=== PATIENT | male | born 1955 | race Caucasian/White ===

== ENCOUNTER 2019-06-06 16:08 | Emergency (ER) | payer MEDICAID, OTHER ==
--- NOTE | 2019-06-06 16:31 | ED Physician Documentation ---
PD HPI TRUNK INJURY - Stated complaint Stated Complaint: GLF - Chief complaint Chief Complaint: Trauma Ch/Bk - History obtained from History obtained from: Patient - History of Present Illness Location: Posterior chest, Right chest, Right abdomen, Mid back Type of injury: Fall (he slipped and fell backward/right, landing on stair edge to the thoracic right back, and has pain in spine/right lateral lower ribs/ chestwall/ right flank/ right upper abd.) Timing - onset: How many hours ago (1), Today Timing - details: Abrupt onset, Still present Quality: Pain Worsened by: Moving, Palpating Associated symtptoms: Discoloration (daughter says the area looked red right off after the fall.). No: Weakness, Numbness, Swelling Contributing factors: No: Anticoagulated Recently seen: Not recently seen Review of Systems Constitutional: reports: Fever. denies: Chills Nose: denies: Rhinorrhea / runny nose, Congestion Throat: denies: Sore throat Cardiac: reports: Chest pain / pressure. denies: Palpitations Respiratory: denies: Dyspnea, Cough GI: reports: Abdominal Pain Skin: denies: Abrasion (s), Laceration (s) Musculoskeletal: reports: Back pain Neurologic: denies: Altered mental status, Headache, Head injury, LOC PD PAST MEDICAL HISTORY - Past Medical History Cardiovascular: Hypertension Respiratory: None Endocrine/Autoimmune: None - Present Medications Home Medications: Ambulatory Orders Medication Instructions Recorded Confirmed Docusate Sodium 100 mg PO DAILY #15 capsule 06/06/19 Ibuprofen [Motrin] 600 mg PO TID PRN #25 tab 06/06/19 Oxycodone HCl/Acetaminophen 1 each PO Q6H PRN #20 tablet 06/06/19 [Percocet 5-325 mg Tablet] Tizanidine HCl 4 mg PO TID PRN #25 capsule 06/06/19 - Allergies Allergies/Adverse Reactions: Allergies Allergy/AdvReac Type Severity Reaction Status Date / Time No Known Drug Allergies Allergy Verified 06/06/19 16:12 - Living Situation Living Situation: reports: With spouse/s.o. Living Arrangement: reports: At home - Social History Does the pt smoke?: No Does the pt drink ETOH?: No Does the pt have substance abuse?: No - Family History Family history: reports: Non contributory PD ED PE NORMAL - Vitals Vital signs reviewed: Yes - General General: Alert and oriented X 3, Well developed/nourished, Other (appears very uncomfortable with pain in injured area. right posterolateral lower ribs, soft tissue and RUQ abd at liver. ) - HEENT HEENT: Atraumatic, Pharynx benign - Neck Neck: Supple, no meningeal sign, No adenopathy - Cardiac Cardiac: RRR, No murmur - Respiratory Respiratory: Clear bilaterally - Abdomen Abdomen: Soft, Non distended, No organomegaly, Other (very tender RUQ without pe rcussion, but does have some rebound. ) - Male Male : Deferred - Rectal Rectal: Deferred - Back Back: No spinal TTP, Other (tender right flank area to perdussion) - Derm Derm: Normal color, Warm and dry Results - Vitals Vitals: Vital Signs - 24 hr 06/06/19 06/06/19 06/06/19 16:12 16:29 18:35 Temperature 37.4 C 37 C Heart Rate 87 84 75 Respiratory 20 14 17 Rate Blood Pressure 242/95 H 199/93 H 179/92 H O2 Saturation 98 97 94 Oxygen O2 Source Room air - Labs Labs: Laboratory Tests 06/06/19 06/06/19 17:00 17:00 WBC 5.4 RBC 4.74 Hgb 14.5 Hct 41.7 L MCV 88.0 MCH 30.6 MCHC 34.8 RDW 14.0 Plt Count 157 MPV 10.7 Neut # (Auto) 3.7 Lymph # (Auto) 1.0 L [place] # (Auto) 0.5 Eos # (Auto) 0.2 Baso # (Auto) 0.0 Absolute Nucleated RBC 0.00 Nucleated RBC % 0.0 Sodium 138 Potassium 4.0 Chloride 99 L Carbon Dioxide 30 Anion Gap 9.0 BUN 27 H Creatinine 1.0 Estimated GFR (MDRD) 76 L Glucose 289 H Calcium 9.5 Total Bilirubin 0.6 AST 28 ALT 35 Alkaline Phosphatase 83 Total Protein 7.5 Albumin 4.6 Globulin 2.9 Albumin/Globulin Ratio 1.6 Lipase 37 - Rads (name of study) chest/abd/pelvic CT with contrast Radiology: Prelim report reviewed (no acute fractures seen. No organ injury nor internal bleeding. ), See rad report PD MEDICAL DECISION MAKING - ED course Complexity details: reviewed results, re-evaluated patient, considered different ial (to evaluate the lower ribs, and consider spine, kidney and liver injuries. ) Departure - Departure Disposition: 01 Home, Self Care Clinical Impression: Contusion of abdominal wall, initial encounter Contusion of thoracic wall Qualifiers: Encounter type: initial encounter Contusion of thoracic wall detail: back wall of thorax Laterality: right Qualified Code(s): S20.221A - Contusion of right back wall of thorax, initial encounter Condition: Stable Record reviewed to determine appropriate education?: Yes Instructions: ED Contusion Chest Wall Prescriptions: Docusate Sodium 100 mg PO DAILY #15 capsule Ibuprofen [Motrin] 600 mg PO TID PRN #25 tab PRN Reason: Pain Oxycodone HCl/Acetaminophen [Percocet 5-325 mg Tablet] 1 each PO Q6H PRN #20 tablet PRN Reason: pain Tizanidine HCl 4 mg PO TID PRN #25 capsule PRN Reason: Spasms Comments: Ice or cool towels to the sore areas to reduce swelling periodically. Activity as tolerated. Your CT scan did not show any fractures of ribs or spine nor any signs of internal organ injuries nor internal bleeding. He will still be sore in the soft tissues from the bruising and injury and this can take several days to a week or so for improving. Use an anti-inflammatory such as ibuprofen 3 times a day with food. Add tizanidine muscle relaxant for spasms and stiffness. Add Tylenol or Percocet if needed for pains. Use a stool softener daily for the next week or 2 as the medications and the injury sometimes can lead to some constipation. Recheck if not improved well over the next several days to a week. Discharge Date/Time: 06/06/19 19:22
[2019-06-06] MEDS ORDERED: ONDANSETRON 4 MG/2 ML VIAL IVP STA (16:53)
[2019-06-06] MEDS ORDERED: HYDROmorphone 1 MG/ML CARPUJECT IVP STA ×2 (16:53→18:43)
[2019-06-06] MEDS ORDERED: SODIUM CHLORIDE 0.9% 1,000 ML IV ONE (16:54)
[2019-06-06] MEDS ORDERED: ACETAMINOPHEN 1,000 MG/100 ML 100 ML IV STA (16:55)
[2019-06-06 17:06] LABS: BASOPHILS % (AUTO) 0.7 %; EOSINOPHILS # (AUTO) 0.2 10^3/uL (0.0-0.7); EOSINOPHILS % (AUTO) 3.3 %; HGB - HEMOGLOBIN 14.5 g/dL (14.0-18.0); LYMPHOCYTES % (AUTO) 17.5 %; MEAN CORPUSCULAR HEMOGLOBIN 30.6 pg (27.0-31.0); MEAN CORPUSCULAR HGB CONC 34.8 g/dL (32.0-36.0); MEAN PLATELET VOLUME 10.7 fL (7.4-11.4); MONOCYTES # (AUTO) 0.5 10^3/uL (0.0-1.0); NEUTROPHILS # (AUTO) 3.7 10^3/uL (1.5-6.6); NEUTROPHILS % (AUTO) 69.1 %; PLT - PLATELET COUNT 157 10^3/uL (130-450); RED BLOOD COUNT 4.74 10^6/uL (4.70-6.10); WHITE BLOOD COUNT 5.4 x10^3/uL (4.8-10.8)
[2019-06-06] MEDS ORDERED: IOVERSOL 320 100 ML VIAL IVP ONE ×2 (17:11→17:53)
[2019-06-06 17:20] LABS: ALBUMIN 4.6 g/dL (3.2-5.5); ALBUMIN/GLOBULIN RATIO 1.6 (1.0-2.2); BILIRUBIN,TOTAL 0.6 mg/dL (0.2-1.0); CALCIUM 9.5 mg/dL (8.5-10.3); TOTAL PROTEIN 7.5 g/dL (6.7-8.2)
[2019-06-06] MEDS ORDERED: KETOROLAC 30 MG/ML VIAL IVP STA (18:02)
--- NOTE | 2019-06-06 18:26 | CT Report ---
Reason: fall onto steps, right thoracolumbar pain Procedure Date: 06/06/2019 Accession Number: [id number] / [id number] Procedure: CT - CHEST W CPT Code: Final Report FULL RESULT: EXAM: CT CHEST EXAM DATE: 06/06/2019 05:52 PM. CLINICAL HISTORY: Fall onto steps, right thoracolumbar pain. COMPARISONS: None. TECHNIQUE: Routine helical CT imaging was performed through the chest. IV contrast: 90 ML of Optiray 320. Reconstructions: Coronal and sagittal. In accordance with CT protocol optimization, one or more of the following dose reduction techniques were utilized for this exam: automated exposure control, adjustment of mA and/or KV based on patient size, or use of iterative reconstructive technique. FINDINGS: Lungs/Pleura: No nodules, bronchial thickening, consolidation, or edema. Pulmonary vasculature is normal. No pericardial or pleural effusion. No pneumothorax. Mediastinum: Normal. No adenopathy or masses. The heart and great vessels are normal. Bones: Unremarkable. Visualized Abdomen: Unremarkable. Other: None. IMPRESSION: Normal chest CT. RADIA
--- NOTE | 2019-06-06 18:31 | CT Report ---
Reason: fall onto steps, right thoracolumbar pain Procedure Date: 06/06/2019 Accession Number: [id number] / [id number] Procedure: CT - Abdomen/Pelvis W CPT Code: Final Report FULL RESULT: EXAM: CT ABDOMEN AND PELVIS EXAM DATE: 06/06/2019 05:52 PM. CLINICAL HISTORY: Fall onto steps, right thoracolumbar pain. COMPARISONS: None. TECHNIQUE: Routine helical CT imaging was performed through the abdomen and pelvis. IV contrast: Optiray 320 90 mL. Enteric contrast: No. Reconstructions: Coronal and sagittal. In accordance with CT protocol optimization, one or more of the following dose reduction techniques were utilized for this exam: automated exposure control, adjustment of mA and/or KV based on patient size, or use of iterative reconstructive technique. FINDINGS: Lung Bases: Unremarkable. Liver: Hepatic steatosis. No suspicious hepatic lesions. Gallbladder/Bile Ducts: Unremarkable. Spleen: Normal. Pancreas: Normal. Adrenal Glands: Normal. Kidneys: Normal. No masses or hydronephrosis. Peritoneal Cavity/Bowel: Normal caliber of the small bowel without evidence of obstruction. No focal bowel wall thickening or inflammation. The appendix is well visualized and normal. Pelvic Organs: Urinary bladder unremarkable. Nonspecific moderate prostatic enlargement. The prostate measures 4.2 x 4.8 cm in axial plane. Vasculature: No aneurysms or other significant abnormality. Retrocaval left renal vein. Bones: No significant abnormality. Other: Fat-containing inguinal hernia measuring 2.7 x 3.6 cm in the axial plane. IMPRESSION: 1. No acute findings including no evidence of solid abdominal organ injury. 2. Hepatic steatosis. 3. No fractures or malalignment. 4. Nonspecific moderate prostatic enlargement. RADIA
[2019-06-06 18:36] VITALS: BP 179/92
[2019-06-06] MEDS ORDERED: LORazepam 2 MG/ML VIAL IVP STA (18:43)
== END 2019-06-06 19:22 | disposition home or self-care (01) ==
LOC: ED 16:08
DX: S30.1XXA Contusion of abdominal wall, initial encounter (principal); S20.221A Contusion of right back wall of thorax, initial encounter; W10.8XXA Fall (on) (from) other stairs and steps, initial encounter; Y93.01 Activity, walking, marching and hiking; I10 Essential (primary) hypertension; K76.0 Fatty (change of) liver, not elsewhere classified; K40.90 Unilateral inguinal hernia, without obstruction or gangrene, not specified as recurrent; N40.0 Benign prostatic hyperplasia without lower urinary tract symptoms
CPT/HCPCS: 36415; 71260; 74177; 80053; 83690; 85025; 96361; 96365; 96375; 96376; 99284; 99285; J0131; J1170; J2060; Q9967

== ENCOUNTER 2024-05-16 11:45 | Inpatient (IN) ==
--- NOTE | 2024-05-16 11:54 | ED Physician Documentation ---
PD HPI FOCAL NEURO Stated complaint Stated Complaint: CODE STROKE Chief complaint Chief Complaint: Neuro Meds/Allgy Home Medications Ambulatory Orders Medication Instructions Recorded Confirmed docusate sodium 100 mg capsule 100 mg PO DAILY ##15 06/06/19 ibuprofen 600 mg tablet 600 mg PO TID PRN Pain #25 tabs 06/06/19 oxycodone-acetaminophen 5 mg-325 1 ea PO Q6H PRN pain #20 tabs 06/06/19 mg tablet (Percocet) tizanidine 4 mg capsule 4 mg PO TID PRN Spasms ##25 06/06/19 Allergies Allergies Allergy/AdvReac Type Severity Reaction Status Date / Time No Known Drug Allergies Allergy Verified 06/06/19 16:12 [facility] Medical History Medical History (Updated 05/16/24 @ 12:41 by Mark Eng MD) Medical history unknown Surgical History Surgical History (Updated 05/16/24 @ 11:56 by Jennifer Welsh RN) Surgical history unknown Social History Social History (Updated 05/16/24 @ 11:56 by Jennifer Welsh RN) Smoking Status: Current some day smoker Second hand tobacco smoke exposure: No Do you dip or chew tobacco?: No Do you vape?: No Living arrangement: At home Living Condition: With spouse/s.o. Support Person: No Relationship: Level: Assisted Do you feel safe in your home environment?: Yes Suffered physical, verbal, emotional, or financial abuse?: No History of Abuse: No Substance Use: denies use POLST Patient has POLST: No Results Vitals Vitals: Vital Signs - 24 hr 05/16/24 11:50 05/16/24 12:26 05/16/24 12:30 Temperature 37.5 C 36.8 C Temperature Source Temporal Artery Scan Tympanic Pulse Rate 105 H 85 82 Respiratory Rate 24 14 14 Blood Pressure 241/123 H 178/87 H 178/87 H O2 Saturation 98 96 92 O2 Source Room air Room air Room air Pain Intensity 0 0 0 05/16/24 13:00 05/16/24 13:30 Temperature 36.5 C Temperature Source Tympanic Pulse Rate 76 76 Respiratory Rate 12 12 Blood Pressure 168/87 H 154/87 H O2 Saturation 96 95 O2 Source Room air Room air Pain Intensity 0 0 Oxygen O2 Source Room air EKG (time done) 1224: EKG releavant findings:: EKG personally interpreted by author of this note. Relevant findings are: Rate: Other (93 bpm, normal axis. Borderline prolonged [place] interval. Narrow QRS complex. LVH with repull abnormality. Q waves in 3 and aVF.) Labs Labs: Laboratory Tests 05/16/24 11:50 WBC 9.2 RBC 4.60 L Hgb 13.8 L Hct 39.6 L MCV 86.1 MCH 30.0 MCHC 34.8 RDW 14.5 Plt Count 185 MPV 10.9 Neut # (Auto) 8.3 H Lymph # (Auto) 0.5 L [place] # (Auto) 0.4 Eos # (Auto) 0.0 Baso # (Auto) 0.0 Absolute Nucleated RBC 0.00 Nucleated RBC % 0.0 PT 14.1 H INR 1.3 H Sodium 138 Potassium 3.4 L Chloride 102 Carbon Dioxide 25 Anion Gap 11.0 BUN 15 Creatinine 1.2 Estimated GFR (MDRD) 61 L Glucose 220 H Calcium 9.7 Total Bilirubin 1.1 H AST 26 ALT 19 Alkaline Phosphatase 65 Total Protein 7.3 Albumin 4.9 Globulin 2.4 Albumin/Globulin Ratio 2.0 Lipase 15 PD Medical Decision Making ED course Complexity details: reviewed results and d/w patient ED course: 68-year-old male with an acute right-sided CVA. Out of the window for tPA. No evidence of large vessel occlusion that would need IR clot retrieval. Discussed the case with telestroke, Dr. Crockett, she recommends aspirin 325 mg p.o. daily. Recommends allowing permissive hypertension, less than 220/120 for 2 days. Can use hydralazine or labetalol as needed for blood pressure management. She recommends then decreasing the blood pressure slowly by 20% daily over the following days. She states that she would do high dose atorvastatin, 40 or 80 mg p.o. daily. Also recommends Plavix if the MRI shows a small stroke and no petechiae. Patient will need admission for the acute stroke. Brain MRI ordered. Discussed the case with Dr. Coe, hospitalist who accepts. Discharge Plan Discharge Patient Disposition: 68 [facility] DC/Xfer Condition: Stable Clinical Impression: Acute stroke due to ischemia Hypertension Qualifiers: Hypertension type: unspecified Qualified Code(s): I10 - Essential (primary) hypertension Interventions: ED Admission Assessment Last Done: 05/16/24 14:00 NIHSS Time 1150: Time: 11:50 Level of Consciousness Level of consciousness: (0) Alert, Keenly responsive LOC Questions: (0) Answers both Q's correct LOC Commands: (0) Performs both correctly Gaze Best Gaze: (0) Normal Visual Visual: (0) No loss Facial Palsy Facial Palsy: (2) Partial paralysis Motor Arms (both separate) Motor Arm (right): (1) Drift Motor Arm (left): (0) No drift Motor Legs (both separate) Motor Leg (right): (2) Some effort against gravity Motor Leg (left): (0) No drift Limb Ataxia Limb Ataxia: (1) Present in 1 limb Sensory Sensory: (0) Normal Best Language Best Language: (0) No aphasia Dysarthria Dysarthria: (2) Severe dysarthria Extinction and Inattention (formally neg Extinction and inattention: (0) No abnormality Total Score/Results Total Score/Result: 8
[2024-05-16 11:58] LABS: BASOPHILS % (AUTO) 0.3 %; HCT - HEMATOCRIT 39.6 % (42.0-52.0); HGB - HEMOGLOBIN 13.8 g/dL (14.0-18.0); LYMPHOCYTES # (AUTO) 0.5 10^3/uL (1.5-3.5); LYMPHOCYTES % (AUTO) 5.1 %; MEAN CORPUSCULAR HGB CONC 34.8 g/dL (32.0-36.0); MEAN CORPUSCULAR VOLUME 86.1 fL (80.0-94.0); MEAN PLATELET VOLUME 10.9 fL (7.4-11.4); MONOCYTES # (AUTO) 0.4 10^3/uL (0.0-1.0); MONOCYTES % (AUTO) 3.8 %; NEUTROPHILS # (AUTO) 8.3 10^3/uL (1.5-6.6); NEUTROPHILS % (AUTO) 90.6 %; PLT - PLATELET COUNT 185 10^3/uL (130-450); RED CELL DISTRIBUTION WIDTH 14.5 % (12.0-15.0); WHITE BLOOD COUNT 9.2 x10^3/uL (4.8-10.8)
[2024-05-16 12:05] LABS: INR 1.3 (0.8-1.2); PT - PROTHROMBIN TIME 14.1 secs (9.9-12.6)
[2024-05-16 12:10] LABS: ALBUMIN 4.9 g/dL (3.2-5.5); BILIRUBIN,TOTAL 1.1 mg/dL (0.2-1.0); CALCIUM 9.7 mg/dL (8.5-10.3); CREATININE 1.2 mg/dL (0.6-1.3); POTASSIUM 3.4 mmol/L (3.5-4.5); TOTAL PROTEIN 7.3 g/dL (6.4-8.9)
[2024-05-16] MEDS ORDERED: iohexoL-300 100 ML VIAL ONE (12:14)
--- NOTE | 2024-05-16 12:22 | CT Report ---
PROCEDURE: CT Head W/O Stroke Protocol INDICATIONS: R sided weakness TECHNIQUE: Helical axial CT of the brain was obtained without contrast and reformatted in multiple p lanes. COMPLIANCE STATEMENTS: Radiation dose reduction was achieved using automated exposure control or adj ustment of mA and/or kV according to patient size. This study fulfills neurological imaging criteria for inclusion or exclusion of acute stroke therapies based on available published neurological imagi ng guidelines. COMPARISON: None. FINDINGS: CSF spaces: Ventricles are appropriate in size and position. No hydrocephalus. Basal cisterns unre markable. Brain: No midline shift. No intracranial masses or hemorrhage. Cha-white matter interface is norm al. Moderate atrophy and multifocal white matter chronic ischemic change noted. Atherosclerotic vascu lar calcification noted in the cavernous segments of both internal carotid arteries. Skull and face: Calvarium and skull base are unremarkable without suspicious lesion. Sinuses: Visualized sinuses and mastoids are clear. IMPRESSION: Atrophy and chronic ischemic change without intracranial hemorrhage or mass effect. Note: Critical results were discussed with the patient's ER physician on 05/16/2024 at 11:20 AM MALIKA laguerre. Reviewed by: Evin Shea MD on 05/16/2024 11:21 AM [place] Approved by: Evin Shea MD on 05/16/2024 11:21 AM [facility] Station ID: [id number]
[2024-05-16] MEDS: LABETALOL 20 MG/4 ML SYRINGE IVP STA (12:25)
--- NOTE | 2024-05-16 12:27 | CT Report ---
PROCEDURE: CT Angio Head/Neck INDICATIONS: R sided weakness TECHNIQUE: Helical axial CT of the head and neck was obtained during the arterial phase of a intrave nous contrast injection utilizing an angiographic protocol. Multiplanar traditional and MIP reformat s were also obtained. Dose reduction techniques included either automated exposure control or adjustm ent of exposure parameters. COMPARISON: None. FINDINGS: Cerebral CT Angiogram: Internal carotid arteries: No acute findings. Intracranial ICA are patent with no significant steno sis. No occlusion. No aneurysm. Anterior cerebral arteries: Unremarkable. No significant stenosis. No occlusion. No aneurysm. Middle cerebral arteries: Unremarkable. No significant stenosis. No occlusion. No aneurysm. Posterior cerebral arteries: Unremarkable. No significant stenosis. No occlusion. No aneurysm. Basilar artery: Unremarkable. No significant stenosis. No occlusion. No aneurysm. Vertebral arteries: Unremarkable as visualized. Dural venous sinuses: Unremarkable given phase of enhancement. Other: Arterial phase appearance of the brain parenchyma is unremarkable. Neck CT Angiogram: Internal carotid arteries: Atherosclerotic plaque in both proximal ICA without hemodynamically signif icant stenosis. Common carotid arteries: Unremarkable. No significant stenosis. No dissection or occlusion. External carotid arteries: Unremarkable. No occlusion. Vertebral arteries: Unremarkable. No significant stenosis. No dissection or occlusion. Left verteb ral artery dominance. Mild less than 50% stenosis noted at the origin the left vertebral artery. Aortic Arch and Mediastinum: Partially visualized aortic arch unremarkable without evidence of aneury sm. Origins of the great vessels unremarkable. Other: Arterial phase soft tissues of the neck are unremarkable. IMPRESSION: Unremarkable CT angiogram of the brain without large vessel occlusion, aneurysm or vascular malformat ion. Mild atherosclerotic plaque in the proximal ICA without hemodynamically significant stenosis starr kelly. Reviewed by: Evin Shea MD on 05/16/2024 11:25 AM [facility] Approved by: Evin Shea MD on 05/16/2024 11:25 AM [facility] Station ID: [id number]
[2024-05-16] MEDS: ASPIRIN 325 MG TABLET PO STA (12:35)
[2024-05-16] MEDS: ATORVASTATIN 40 MG TABLET PO STA (12:35)
[2024-05-16] MEDS ORDERED: ONDANSETRON 4 MG/2 ML VIAL IVP PRN (13:57)
[2024-05-16] MEDS ORDERED: SODIUM CHLORIDE FLUSH 0.9% 10 ML SYRINGE IVP PRN (13:57)
[2024-05-16] MEDS ORDERED: LABETALOL 20 MG/4 ML SYRINGE IVP PRN (14:05)
[2024-05-16] MEDS ORDERED: hydrALAZINE INJ 20 MG/ML VIAL IVP PRN (14:11)
--- NOTE | 2024-05-16 14:45 | HISTORY & PHYSICAL EXAMINATION ---
<Statement entered by PREET Serna - 05/16/24 15:08> Attestation that the patient was seen and examined by me with a separate encounter after being seen by PA student. I reviewed the student's documentation including the patient history, physical examination, laboratory, imaging clinical assessment and treatment plan. I have discussed the management of the patient with the student and with the patient. There are no changes. Chief Complaint <Yuriy Conte - Last Filed: 05/16/24 15:04> Chief Complaint Chief Complaint: loss of conscious History of Present Illness <Yuriy leoncio Filed: 05/16/24 15:04> Admitted From Admitted From:: Emergency room History Obtained From Records Reviewed: expanse History of Present Illness HPI Comment/Other: 68 y/o white male brought to ER via ambulance service for loss of conscious. Pt's find him on the bedroom floor around 11 am and then they called EMS. Pt remember he woke up at 5:30 making coffee, around 9:30 as he was getting ready to go out he felt weak and this was the last thing he remembered. Pt states overall weakness on the left side, no headache, no radiating pain, no incontinence. Pt was diagnosed with hypertension, however, due to covid he stopped taking his B/P medication. Pt works as cook. He is . Pt doesn't smoke. Meds/Allgy <Yuriy carlo Last Filed: 05/16/24 15:04> Home Medications Ambulatory Orders Medication Instructions Recorded Confirmed docusate sodium 100 mg capsule 100 mg PO DAILY ##15 06/06/19 ibuprofen 600 mg tablet 600 mg PO TID PRN Pain #25 tabs 06/06/19 oxycodone-acetaminophen 5 mg-325 1 ea PO Q6H PRN pain #20 tabs 06/06/19 mg tablet (Percocet) tizanidine 4 mg capsule 4 mg PO TID PRN Spasms ##25 06/06/19 Allergies Allergies Allergy/AdvReac Type Severity Reaction Status Date / Time No Known Drug Allergies Allergy Verified 06/06/19 16:12 PFSH <Yuriy Black Last Filed: 05/16/24 15:04> Medical History Medical History (Updated 05/16/24 @ 12:41 by Mark Eng MD) Medical history unknown Surgical History Surgical History (Updated 05/16/24 @ 11:56 by Jennifer Welsh RN) Surgical history unknown Social History Social History (Updated 05/16/24 @ 11:56 by Jennifer Welsh RN) Smoking Status: Current some day smoker Second hand tobacco smoke exposure: No Do you dip or chew tobacco?: No Do you vape?: No Living arrangement: At home Living Condition: With spouse/s.o. Support Person: No Relationship: Level: Assisted Do you feel safe in your home environment?: Yes Suffered physical, verbal, emotional, or financial abuse?: No History of Abuse: No Substance Use: denies use POLST Patient has POLST: No POLST Status: DNR Review of Systems <[facility] - Last Filed: 05/16/24 15:04> Constitutional Reports: Fatigue and Weakness; Denies: Fever or Chills Eyes Reports: Light sensitivity Cardiovascular Reports: Irregular heart rate Musculoskeletal Reports: Extremity swelling (left leg swelling) Neurological Reports: Focal weakness and Weakness in extremities (weakness on the left extremity ) Endocrine Reports: Fatigue <[facility] - Last Filed: 05/16/24 15:04> Prior Level of Functionality: Pt was healthy with no issues of ADL Exam <[facility] - Last Filed: 05/16/24 15:04> Exam 68 y/o old pt, who looks his age and in apparent distress, slurred speech, right sided general weakness with poor dentition, left leg edma. Constitutional abnormal general appearance HENMT TMs normal bilaterally and external nose normal Eyes PERRL and EOMs intact bilaterally Neck/C-Spine visual inspection normal Lymph no lymphadenopathy noted Chest inspection of chest normal and palpation of chest normal Respiratory breath sounds equal bilaterally Cardiovascular normal heart rate noted and no murmur Gastrointestinal abdomen normal to inspection and abdomen soft to palpation Back/Pelvis spine normal to inspection Extremities left arm weakness, resistance to gravity, right leg edema, no numbness or tingling Neurology road equipment operator II-XII intact and no focal motor deficit noted Skin skin color normal Conclusion/Plan <[facility] - Last Filed: 05/16/24 15:04> Problem List (1) Acute stroke due to ischemia: Plan: Right sided CVA. No tPA because it's outside of the window. weakness on the right side of the extremity, left leg edema. Plans:Allowing permissive HTN, less than 220/120 for 2 days echocadiogram to r/o atrial fibrillation MRI of the brain to assess level of damage to the brain venous duplex ultrasound to r/o DVT on the right leg asprin pt/ot consult (2) Hypertension: Plan: Hypertension under 220/120 is allowed for 2 days. Qualifiers: Hypertension type: unspecified Qualified Code(s): I10 - Essential (primary) hypertension Plan We will monitor and continue the patient to aviod a secondary stroke Lab Results Lab results reviewed: Yes 05/16/24 11:50 05/16/24 11:50 Diagnostic Imaging Results Diagnostic Imaging Results: positive Final report reviewed <PREET Serna - Last Filed: 05/16/24 15:27> Problem List (1) Acute stroke due to ischemia: (2) Hypertension:
--- NOTE | 2024-05-16 18:04 | MRI Report ---
PROCEDURE: MRI Brain WO INDICATIONS: R sided weakness TECHNIQUE: Multiplanar multisequential MR images of the brain were obtained without contrast COMPARISON: None FINDINGS: CSF Spaces: Basal cisterns are patent. No extra-axial fluid collections. Ventricles are normal in size and shape. Brain: No intracranial masses or hemorrhage. Cha/white matter interface is normal. Brainstem appe ars normal. . Normal intravascular flow voids are present. Atrophy and white matter chronic ischemic changes present. Old right caudate lacunar infarct. Punctate old blood products noted in the left cerebellar dentate nucleus, right occipital, left tempo ral, left frontal cortex as well as left thalamus reflecting sequelae of old microhemorrhage . Focal restricted diffusion noted in the basilar portion of the left hemipons. Skull and face: Calvarium has normal marrow signal. Orbits appear normal. Sinuses: Sinuses and mastoids are clear. IMPRESSION: Left-sided pontine acute infarct. Atrophy, chronic ischemic change, and old right basal ganglia lacunar infarct. Multifocal punctate ol d blood products noted reflecting sequelae of prior microhemorrhage. Reviewed by: Evin Shea MD on 05/16/2024 5:03 PM [place] Approved by: Evin Shea MD on 05/16/2024 5:03 PM [facility] Station ID: [id number]
[2024-05-16] MEDS: SODIUM CHLORIDE FLUSH 0.9% 10 ML SYRINGE IVP SCH (18:46)
[2024-05-16] MEDS: HEPARIN 5,000 UNIT/ML VIAL SUBQ SCH (20:40)
--- NOTE | 2024-05-17 09:43 | Ultrasound Report ---
PROCEDURE: US Venous Duplex LT INDICATIONS: left lower extremity edema TECHNIQUE: Real-time imaging, as well as color and pulse Doppler interrogation, were performed of the lower extr emity deep veins from the inguinal ligament to the popliteal fossa. Attempted visualization of the ca lf veins was performed. COMPARISON: None. FINDINGS: The deep veins are normally compressible, and free of intraluminal thrombus. Color and pu lse Doppler demonstrate normal phasic intraluminal flow. There is normal augmentation response to di stal compression maneuver. IMPRESSION: No deep venous thrombosis of the visualized lower extremity. Reviewed by: Oscar Yan MD on 05/17/2024 9:41 AM PST Approved by: Oscar Yan MD on 05/17/2024 9:41 AM PST Station ID: [id number]
[2024-05-17] MEDS: ASPIRIN 325 MG TABLET PO SCH (09:44)
[2024-05-17] MEDS: CLOPIDOGREL 75 MG TABLET PO SCH (09:44)
--- NOTE | 2024-05-17 10:00 | XRAY Report ---
PROCEDURE: XR Hand 1-2V RT INDICATIONS: right hand swelling TECHNIQUE: 2 views of the hand(s) acquired. COMPARISON: None. FINDINGS: Bones: Mild first CMC and STT arthrosis. No acute displaced fracture or dislocation. No radiographic erosions are seen. Soft tissues: No suspicious calcifications. IMPRESSION: Mild degenerative changes at the base of the thumb. No acute radiographic abnormality. If there is high concern for further derangement, consider MRI evaluation. Reviewed by: Oscar Yan MD on 05/17/2024 9:59 AM PST Approved by: Oscar Yan MD on 05/17/2024 9:59 AM PST Station ID: [id number]
[2024-05-17] MEDS: TAMSULOSIN 0.4 MG CAPSULE PO SCH (11:18)
--- NOTE | 2024-05-17 12:19 | PHARMACY PROGRESS NOTE ---
Best Possible Medication History Admit Date and Time: 05/16/24 [id number] Home Medications Medication Instructions Recorded Confirmed Type docusate sodium 100 mg capsule 100 mg PO DAILY ##15 06/06/19 05/17/24 Rx [facility] Statement: As the person ultimately responsible for medication therapy, providers are able to order a medication from an existing home medication list in [facility] via the "Reconcile Routine" prior to Confirmation of that medication by clinical support nurse. Such practice is discouraged except when the physician, in their clinical judgment, deems that a medical need exists for a medication without regard to previous use.
--- NOTE | 2024-05-17 12:28 | ADVANCE CARE PLANNING NOTE ---
Advance Care Planning Planning Encounter Date: 05/17/24 Time: 12:19 Purpose: Determine goals of care in the case of future events. Parties in Attendance: Patient, (Alva), PA student Rhonda Samaniego PA-C Decisional Capacity of the Patient: Alert, oriented with insight into his situation Diagnosis for Encounter (1) Acute stroke due to ischemia: (2) Hypertension: Qualifiers: Hypertension type: unspecified Qualified Code(s): I10 - Essential (primary) hypertension Encounter Subjective/Patient's Story: Up until events yesterday, was a functional adult. Employed as a cook until 3 weeks ago. Has not seen an MD for about 4 years, when he stopped seeing his PCP for hypertension. has 3 children- [place], two in [place]. Active members of a [employer]ism confucianism; he and his know that they can count on their catholic family for help. Initially when I spoke with the patient and his this morning they stated that they would accept fractionated blood products but would not accept whole blood. Then later on I am called back into the room. This is after a visit from members of their catholic. Patient has a DURABLE POWER OF HIMS MANAGER that is signed and states that he will not accept blood products. I discussed this with the patient and his and they would like this to be his wishes. He will not accept any blood products. He will not accept platelets he will not accept plasma he will not accept red blood cells. He will not accept whole blood. His POLST was updated to reflect these wishes. Objective/Medical Story: Acute CVA. left pontine. MRI also shows multifocal punctate old blood products reflecting previous microhemorrhage. Patient with dysarthria, hemiplegia of the right side with dense hemplegia at the right hand, but able to move the right elbow, unable to move the right leg. Goals of Care: Does not want to live in a severely disabled state. He is hopeful that with rehab he will improve from his current state. Plan: As a [employer]ism this patient will not accept blood products. He does not want to have CPR, he does not want to be intubated. He would accept medical nutrition. Code Status: Do Not Attempt Resuscitation Time spent on advance care plannin
--- NOTE | 2024-05-17 14:33 | PROVIDER PROGRESS NOTE ---
Documented by User: Yuriy Conteenrique 05/17/24 17:48 Subjective Prog Note Date Prog Note Date: 05/17/24 Subjective Pt reports feeling: Improved Subjective: Pt states he's feel better today. Reports better appetite. Pt was tearful and emotional earlier this morning . Current Medications Current Medications Current Medications: Current Medications Generic Name Dose Route Start Last Admin Trade Name Freq PRN Reason Stop Dose Admin Acetaminophen 650 mg 05/16/24 13:57 Acetaminophen 325 Mg Tablet PO Q4HR PRN Pain 1 to 4, or Fever Aspirin 325 mg 05/17/24 08:00 05/17/24 09:44 Aspirin 325 Mg Tablet PO 325 mg DAILYWM LOAN Administration Clopidogrel Bisulfate 75 mg 05/17/24 09:00 05/17/24 09:44 Clopidogrel 75 Mg Tablet PO 75 mg DAILY LOAN Administration Heparin Sodium (Porcine) 5,000 unit 05/16/24 21:00 05/17/24 09:43 Heparin 5,000 Unit/Ml Vial SUBQ 5,000 unit BID LOAN Administration Hydralazine HCl 10 mg 05/16/24 14:11 Hydralazine Inj 20 Mg/Ml Vial IVP Q4H PRN SBP>220 Labetalol HCl 10 mg 05/16/24 14:05 Labetalol 20 Mg/4 Ml Syringe IVP Q4H PRN SBP>220, hold for HR <65 Ondansetron HCl 4 mg 05/16/24 13:57 Ondansetron 4 Mg/2 Ml Vial IVP Q6HR PRN Nausea / Vomiting Sodium Chloride 10 ml 05/16/24 13:57 Sodium Chloride Flush 0.9% 10 Ml Syringe IVP PRN PRN NEEDED PER PROVIDER ORDERS Sodium Chloride 10 ml 05/16/24 17:00 05/17/24 09:44 Sodium Chloride Flush 0.9% 10 Ml Syringe IVP 10 ml 0100,0900,1700 LOAN Administration Tamsulosin HCl 0.4 mg 05/17/24 11:00 05/17/24 11:18 Tamsulosin 0.4 Mg Capsule PO 0.4 mg DAILY LOAN Administration Objective Vital Signs/Intake & Output Reviewed Vital Signs: Yes Vital Signs: Vital Signs x48h Temp Pulse Pulse Pulse Resp BP BP 05/17/24 12:50 36.5 C 75 19 127/68 05/17/24 10:36 36.6 C 78 16 172/92 H 05/17/24 10:35 83 74 194/110 H 05/17/24 08:09 36.6 C 83 18 164/98 H BP Pulse Ox 05/17/24 12:50 95 05/17/24 10:36 97 05/17/24 10:35 168/90 H 05/17/24 08:09 93 Intake & Output: Intake & Output 05/15/24 05/16/24 05/17/24 05/18/24 05:59 05:59 05:59 05:59 Intake Total 557 / 557 357 / 357 Output Total 1775 / 1775 225 / 225 Balance -1218 / -1218 132 / 132 Weight (kg) 85.5 kg Objective General Appearance: positive No acute distress Eyes Bilateral: positive Normal inspection ENT: positive ENT inspection nml Neck: positive Nml inspection Respiratory: positive Chest non-tender Cardiovascular: positive Regular rate & rhythm Abdomen: positive Non-tender and No organomegaly Rectal: positive Non-tender Back: positive Nml inspection Skin: positive Color nml and Warm Extremities: positive Nml appearance, No pedal edema and Other (weakness in his right extremity due to CVA. ) Neurologic/Psychiatric: positive Oriented x3 Lab Results 05/16/24 11:50 05/16/24 11:50 Diagnostic Imaging Diagnostic Imaging Results: positive Final report reviewed ABX Reporting Has patient been on IV antibiotics over the past 48 hours?: No Assessment/Plan Problem List (1) Acute stroke due to ischemia: Impression: 68 y/o white male who just had left side pontine infarct. His speech is still slurred. hemiplegia of the right side; it's worse on the right arm then leg. The edema that was on his left ankle is no longer there. During this interview, he's alerted and oriented. in good spirits. Pt does have difficult swallowing food. Plan: Transfer pt inpatient pt/ot. pending insurance authorization; we will keep him inpatient until then. Given pt food that's easy to swallow. (2) Urinary retention: Impression: Urinary retention mostly due to CVA. chatman catheter is placed, over 500 cc liter was drained.chatman catheter is placed, over 500 cc liter was drained. Plan: the catheter will be in place for few more days and we will take it out and see if pt can urinate on his own. Tamsulosin is also prescribed (3) Hypertension: Impression: Blood pressure has been normalized at 12:50. Per last note permissive HTN of 220/120 can be allowed for one more day. Qualifiers: Hypertension type: unspecified Qualified Code(s): I10 - Essential (primary) hypertension Documented by User: PREET Serna 05/17/24 17:48 Objective Lab Results 05/16/24 11:50 05/16/24 11:50 Assessment/Plan Problem List (1) Acute stroke due to ischemia: (2) Urinary retention: (3) Hypertension: Qualifiers: Hypertension type: unspecified Qualified Code(s): I10 - Essential (primary) hypertension
[2024-05-17] MEDS ORDERED: oxyCODONE 5 MG TABLET PO PRN (20:49)
[2024-05-17] MEDS ORDERED: IPRATROPIUM/ALBUTEROL 3 ML NEB INH PRN (20:52)
[2024-05-17] MEDS: ACETAMINOPHEN 325 MG TABLET PO PRN (20:55)
--- NOTE | 2024-05-17 21:10 | XRAY Report ---
PROCEDURE: XR Chest 1V INDICATIONS: Hypoxia TECHNIQUE: One view of the chest was acquired. COMPARISON: CT chest dated 06/06/2019. FINDINGS: Surgical changes and devices: None. Lungs and pleura: No pleural effusions or pneumothorax. Lungs are clear. Mediastinum: Mediastinal contours appear normal. Heart size is normal. Bones and chest wall: No suspicious bony lesions. Overlying soft tissues appear unremarkable. IMPRESSION: No acute cardiopulmonary process. Reviewed by: Carlos Espinal MD on 05/17/2024 9:09 PM [facility] Approved by: Carlos Espinal MD on 05/17/2024 9:09 PM [facility] Station ID: [id number]
[2024-05-17] MEDS ORDERED: iohexoL-300 100 ML VIAL ONE (21:34)
[2024-05-17] MEDS: iohexoL-300 100 ML VIAL IVP ONE (22:29)
--- NOTE | 2024-05-17 22:43 | CT Report ---
PROCEDURE: CT Angio Chest INDICATIONS: Hypoxia CONTRAST: 100 ML OMNI 300 TECHNIQUE: After the administration of intravenous contrast, 2 mm axial images were acquired from the pulmonary apices to the posterior costophrenic angles during the arterial phase. In addition, 1 mm lung kernel and 5 mm soft tissue kernel reconstructions were performed. 3-dimensional coronal oblique maximum int ensity projection (MIP) reformats, 8 mm axial MIP, and 5 mm coronal and sagittal MPR reformats were t hen performed through the thorax. For radiation dose reduction, the following was used: automated exp osure control, adjustment of mA and/or kV according to patient size. COMPARISON: Chest radiograph on the same day. FINDINGS: Image quality: Excellent. Large vessels: No filling defects within the opacified pulmonary arteries, accounting for motion and contrast timing. No evidence of acute aortic syndrome or aortic aneurysm. Lungs and pleura: Mild emphysematous changes are noted in bilateral lung meehan. Dependent atelectasi s are seen in posterior aspect of bilateral mid to lower lung zone. Small infiltrates cannot be entir hernan excluded. No pleural effusions. No pneumothorax. No suspicious pulmonary nodules which require f ollow up. Mediastinum: Heart size is enlarged. No pericardial effusion. No large vessel abnormality. No mediast inal adenopathy by size criteria. Chest wall and lower neck: Thyroid is unremarkable. No axillary or supraclavicular adenopathy by size . Bones: No aggressive osseous abnormality. Upper Abdomen: Unremarkable. IMPRESSION: 1. No pulmonary embolus. 2. Cardiomegaly, no pericardial effusion. No thoracic aortic aneurysm or gross dissection. 3. Moderate infiltrates/atelectasis in posterior aspect of bilateral lower lobes near lung bases. No pleural effusion or pneumothorax. Airway is patent. 4. No mediastinal or hilar lymphadenopathy. Reviewed by: Carlos Espinal MD on 05/17/2024 10:41 PM PST Approved by: Carlos Espinal MD on 05/17/2024 10:41 PM PST Station ID: [id number]
[2024-05-18 05:40] LABS: BASOPHILS % (AUTO) 0.7 %; EOSINOPHILS # (AUTO) 0.2 10^3/uL (0.0-0.7); EOSINOPHILS % (AUTO) 3.8 %; HCT - HEMATOCRIT 37.4 % (42.0-52.0); HGB - HEMOGLOBIN 12.7 g/dL (14.0-18.0); LYMPHOCYTES # (AUTO) 1.3 10^3/uL (1.5-3.5); LYMPHOCYTES % (AUTO) 22.9 %; MEAN CORPUSCULAR HEMOGLOBIN 29.5 pg (27.0-31.0); MEAN PLATELET VOLUME 10.8 fL (7.4-11.4); MONOCYTES # (AUTO) 0.5 10^3/uL (0.0-1.0); MONOCYTES % (AUTO) 8.5 %; NEUTROPHILS # (AUTO) 3.6 10^3/uL (1.5-6.6); NEUTROPHILS % (AUTO) 63.9 %; PLT - PLATELET COUNT 154 10^3/uL (130-450); RED CELL DISTRIBUTION WIDTH 14.6 % (12.0-15.0); WHITE BLOOD COUNT 5.6 x10^3/uL (4.8-10.8)
[2024-05-18 06:00] LABS: CALCIUM 9.4 mg/dL (8.5-10.3); CREATININE 1.1 mg/dL (0.6-1.3); POTASSIUM 3.3 mmol/L (3.5-4.5)
--- NOTE | 2024-05-18 08:10 | PROVIDER PROGRESS NOTE ---
Subjective Prog Note Date Prog Note Date: 05/18/24 Prog Note Time: 08:10 Subjective Pt reports feeling: Improved Subjective: He is less emotionally labile today. He is sitting up eating his breakfast. We are discussing possibilities of what may happen when he leaves the hospital. He chokes on his coffee while I am in the room. Current Medications Current Medications Current Medications: Current Medications Generic Name Dose Route Start Last Admin Trade Name Freq PRN Reason Stop Dose Admin Acetaminophen 650 mg 05/16/24 13:57 05/17/24 20:55 Acetaminophen 325 Mg Tablet PO 650 mg Q4HR PRN Administration Pain 1 to 4, or Fever Albuterol/Ipratropium 3 ml 05/17/24 20:52 Ipratropium/Albuterol 3 Ml Neb INH Q4HR PRN Shortness of breath Aspirin 325 mg 05/17/24 08:00 05/17/24 09:44 Aspirin 325 Mg Tablet PO 325 mg DAILYWM LOAN Administration Clopidogrel Bisulfate 75 mg 05/17/24 09:00 05/17/24 09:44 Clopidogrel 75 Mg Tablet PO 75 mg DAILY LOAN Administration Heparin Sodium (Porcine) 5,000 unit 05/16/24 21:00 05/17/24 21:08 Heparin 5,000 Unit/Ml Vial SUBQ 5,000 unit BID LOAN Administration Hydralazine HCl 10 mg 05/16/24 14:11 Hydralazine Inj 20 Mg/Ml Vial IVP Q4H PRN SBP>220 Labetalol HCl 10 mg 05/16/24 14:05 Labetalol 20 Mg/4 Ml Syringe IVP Q4H PRN SBP>220, hold for HR <65 Ondansetron HCl 4 mg 05/16/24 13:57 Ondansetron 4 Mg/2 Ml Vial IVP Q6HR PRN Nausea / Vomiting Oxycodone HCl 5 mg 05/17/24 20:49 Oxycodone 5 Mg Tablet PO 05/18/24 20:48 ONCE PRN PAIN >8 Sodium Chloride 10 ml 05/16/24 13:57 Sodium Chloride Flush 0.9% 10 Ml Syringe IVP PRN PRN NEEDED PER PROVIDER ORDERS Sodium Chloride 10 ml 05/16/24 17:00 05/18/24 00:00 Sodium Chloride Flush 0.9% 10 Ml Syringe IVP 10 ml 0100,0900,1700 LOAN Administration Tamsulosin HCl 0.4 mg 05/17/24 11:00 05/17/24 11:18 Tamsulosin 0.4 Mg Capsule PO 0.4 mg DAILY LOAN Administration Objective Vital Signs/Intake & Output Reviewed Vital Signs: Yes Vital Signs: Vital Signs x48h Temp Pulse Resp BP Pulse Ox 05/18/24 07:52 36.5 C 60 18 183/91 H 96 05/18/24 04:11 36.3 C L 69 18 156/86 H 97 Intake & Output: Intake & Output 05/16/24 05/17/24 05/18/24 05/19/24 05:59 05:59 05:59 05:59 Intake Total 557 / 557 1347 / 1347 Output Total 1775 / 1775 1225 / 1225 Balance -1218 / -1218 122 / 122 Weight (kg) 85.5 kg Objective General Appearance: positive No acute distress Eyes Bilateral: positive Normal inspection and Conjunctivae nml ENT: positive ENT inspection nml Neck: positive Nml inspection Respiratory: positive Chest non-tender Cardiovascular: positive Regular rate & rhythm Abdomen: positive Non-tender and No organomegaly Rectal: positive Non-tender Back: positive Nml inspection Skin: positive Color nml and Warm Extremities: positive Nml appearance, No pedal edema and Other (weakness in his right extremity due to CVA. ) Neurologic/Psychiatric: positive Oriented x3, Mood/affect nml (has been emotionally labile (?pseudobulbar). improved today), Weakness (right upper and lower extremity weakness. hand and wrist are especially weak on the right. elbow and shoulder have strength. ) and Facial droop (nasolabial fold is flattened on the right. ); negative CN's nml (2-12) Lab Results 05/18/24 05:20 05/18/24 05:20 Other Labs: Lab Results x24hrs 05/18/24 05/17/24 Range/Units 05:20 20:56 WBC 5.6 (4.8-10.8) x10^3/uL RBC 4.30 L (4.70-6.10) 10^6/uL Hgb 12.7 L (14.0-18.0) g/dL Hct 37.4 L (42.0-52.0) % MCV 87.0 (80.0-94.0) fL MCH 29.5 (27.0-31.0) pg MCHC 34.0 (32.0-36.0) g/dL RDW 14.6 (12.0-15.0) % Plt Count 154 (130-450) 10^3/uL MPV 10.8 (7.4-11.4) fL Neut # (Auto) 3.6 (1.5-6.6) 10^3/uL Lymph # (Auto) 1.3 L (1.5-3.5) 10^3/uL Dyer # (Auto) 0.5 (0.0-1.0) 10^3/uL Eos # (Auto) 0.2 (0.0-0.7) 10^3/uL Baso # (Auto) 0.0 (0.0-0.1) 10^3/uL Absolute Nucleated RBC 0.00 x10^3/uL Nucleated RBC % 0.0 /100WBC D-Dimer 229.9 (200.0-255.0) ng/mL Sodium 140 (135-145) mmol/L Potassium 3.3 L (3.5-4.5) mmol/L Chloride 105 (101-111) mmol/L Carbon Dioxide 29 (21-32) mmol/L Anion Gap 6.0 (6-13) BUN 15 (6-20) mg/dL Creatinine 1.1 (0.6-1.3) mg/dL Estimated GFR (MDRD) 67 L (>89) Glucose 180 H (74-104) mg/dL Calcium 9.4 (8.5-10.3) mg/dL Diagnostic Imaging Diagnostic Imaging Comments: echo result remains pending. images done on 05/16. ABX Reporting Has patient been on IV antibiotics over the past 48 hours?: No Assessment/Plan Problem List (1) Acute stroke due to ischemia: Impression: 68 y/o white male who just had left side pontine infarct. His speech is still slurred. hemiplegia of the right side; it's worse on the right arm then leg. The edema that was on his left ankle is no longer there. During this interview, he's alerted and oriented. He choked on his coffee this AM while I was in the room. I think because he was focusing on me and what I was saying to him. I discussed with annual giving director who worked with him at lunch. He was able to swallow thin liquids without difficulty. He is on a pureed diet for this reason. Will monitor and continue to advance if and when possible. His social situation is difficult. Unfortunately he did not sign up for Medicare and this cannot be completed until July of this year. He therefore does not qualify for supplemental Medicaid. This severely limits his options for inpatient rehab. Will continue to investigate all avenues through our social work department. (2) Hypertension: Impression: I have allowed permissive hypertension through today. Now again to control his blood pressure. This morning I started him on lisinopril 20 mg daily.Selected Entries 05/18/24 04:11 05/18/24 07:52 05/18/24 10:00 Pulse Rate [Brachial] 69 60 78 Blood Pressure [Left Brachial artery] 156/86 H 183/91 H 164/80 H 05/18/24 12:23 Pulse Rate [Brachial] 69 Blood Pressure [Left Brachial artery] 164/83 H Qualifiers: Hypertension type: unspecified Qualified Code(s): I10 - Essential (primary) hypertension (3) Dysphagia: Impression: He has had significantly slurred speech since his stroke. I placed him on a pured diet yesterday due to difficulty with chewing and swallowing. This morning he choked on thin liquids but was able to tolerate them at lunchtime. We will have to keep a close eye on his ability to tolerate oral intake. In our advance care planning discussions patient states that he would consent to feeding tube placement were to be indicated. Qualifiers: Dysphagia type: oropharyngeal phase Qualified Code(s): R13.12 - Dysphagia, oropharyngeal phase (4) Urinary retention: Impression: Urinary retention, acute, likely related to his CVA. I will attempt Purvis removal tomorrow. I have placed the patient on Flomax yesterday. (5) Hypokalemia: Impression: I have instituted daily potassium replacement with 20 mill equivalents of KCl p.o. I will check BMP in the AM. I have spent 55 minutes in the care of this patient today. This includes time [id number], review and ordering of diagnostic imaging and laboratory studie, s and consultation with other providers.. Monitoring the patient's signs symptoms, evaluation of medication effectiveness and patient's response to treatment.
--- NOTE | 2024-05-18 08:37 | Ultrasound Report ---
PROCEDURE: US Venous Duplex RT INDICATIONS: RLE pain, clinical suspicion of right deep vein thrombosis TECHNIQUE: Real-time imaging, as well as color and pulse Doppler interrogation, were performed of the lower extr emity deep veins from the inguinal ligament to the popliteal fossa. Attempted visualization of the ca lf veins was performed. 31 images. COMPARISON: None. FINDINGS: The deep veins are normally compressible, and free of intraluminal thrombus. Color and pulse Doppler demonstrate normal phasic intraluminal flow. There is normal augmentation response to distal compre ssion maneuver. IMPRESSION: No deep venous thrombosis of the visualized right lower extremity. Agree with preliminary interpretation provided to the ordering provider by the ultrasound technologis t. Reviewed by: Peter Man MD on 05/18/2024 8:36 AM PST Approved by: Peter Man MD on 05/18/2024 8:36 AM PST Station ID: [id number]
[2024-05-18] MEDS: POTASSIUM CHLORIDE 20 MEQ TABLET PO SCH (11:08)
[2024-05-18] MEDS: lisinopriL 20 MG TABLET PO SCH (11:08)
[2024-05-18 11:34] LABS: ESTIMATED AVERAGE GLUCOSE 157 mg/dL (70-100); HEMOGLOBIN A1c% 7.1 % (4.27-6.07)
[2024-05-18] MEDS: ATORVASTATIN 40 MG TABLET PO SCH (20:31)
[2024-05-19 05:59] LABS: BASOPHILS % (AUTO) 0.9 %; EOSINOPHILS # (AUTO) 0.3 10^3/uL (0.0-0.7); EOSINOPHILS % (AUTO) 5.9 %; HCT - HEMATOCRIT 37.1 % (42.0-52.0); HGB - HEMOGLOBIN 12.9 g/dL (14.0-18.0); LYMPHOCYTES # (AUTO) 1.1 10^3/uL (1.5-3.5); LYMPHOCYTES % (AUTO) 24.7 %; MEAN CORPUSCULAR HEMOGLOBIN 30.3 pg (27.0-31.0); MEAN CORPUSCULAR HGB CONC 34.8 g/dL (32.0-36.0); MEAN CORPUSCULAR VOLUME 87.1 fL (80.0-94.0); MEAN PLATELET VOLUME 11.2 fL (7.4-11.4); MONOCYTES # (AUTO) 0.4 10^3/uL (0.0-1.0); MONOCYTES % (AUTO) 8.3 %; NEUTROPHILS # (AUTO) 2.7 10^3/uL (1.5-6.6); PLT - PLATELET COUNT 142 10^3/uL (130-450); RED BLOOD COUNT 4.26 10^6/uL (4.70-6.10); RED CELL DISTRIBUTION WIDTH 14.6 % (12.0-15.0); WHITE BLOOD COUNT 4.6 x10^3/uL (4.8-10.8)
[2024-05-19 06:10] LABS: CALCIUM 8.9 mg/dL (8.5-10.3); POTASSIUM 3.5 mmol/L (3.5-4.5)
--- NOTE | 2024-05-19 08:54 | PROVIDER PROGRESS NOTE ---
Subjective Prog Note Date Prog Note Date: 05/19/24 Prog Note Time: 08:54 Current Medications Current Medications Current Medications: Current Medications Generic Name Dose Route Start Last Admin Trade Name Freq PRN Reason Stop Dose Admin Acetaminophen 650 mg 05/16/24 13:57 05/18/24 20:31 Acetaminophen 325 Mg Tablet PO 650 mg Q4HR PRN Administration Pain 1 to 4, or Fever Albuterol/Ipratropium 3 ml 05/17/24 20:52 Ipratropium/Albuterol 3 Ml Neb INH Q4HR PRN Shortness of breath Aspirin 325 mg 05/17/24 08:00 05/19/24 08:12 Aspirin 325 Mg Tablet PO 325 mg DAILYWM LOAN Administration Atorvastatin Calcium 40 mg 05/18/24 21:00 05/18/24 20:31 Atorvastatin 40 Mg Tablet PO 40 mg QPM LOAN Administration Clopidogrel Bisulfate 75 mg 05/17/24 09:00 05/19/24 08:12 Clopidogrel 75 Mg Tablet PO 75 mg DAILY LOAN Administration Heparin Sodium (Porcine) 5,000 unit 05/16/24 21:00 05/19/24 08:12 Heparin 5,000 Unit/Ml Vial SUBQ 5,000 unit BID LOAN Administration Hydralazine HCl 10 mg 05/16/24 14:11 Hydralazine Inj 20 Mg/Ml Vial IVP Q4H PRN SBP>220 Labetalol HCl 10 mg 05/16/24 14:05 Labetalol 20 Mg/4 Ml Syringe IVP Q4H PRN SBP>220, hold for HR <65 Lisinopril 20 mg 05/18/24 11:00 05/19/24 08:12 Lisinopril 20 Mg Tablet PO 20 mg DAILY LOAN Administration Ondansetron HCl 4 mg 05/16/24 13:57 Ondansetron 4 Mg/2 Ml Vial IVP Q6HR PRN Nausea / Vomiting Potassium Chloride 20 meq 05/18/24 11:00 05/19/24 08:12 Potassium Chloride 20 Meq Tablet PO 20 meq DAILYWM LOAN Administration Sodium Chloride 10 ml 05/16/24 13:57 Sodium Chloride Flush 0.9% 10 Ml Syringe IVP PRN PRN NEEDED PER PROVIDER ORDERS Sodium Chloride 10 ml 05/16/24 17:00 05/19/24 08:13 Sodium Chloride Flush 0.9% 10 Ml Syringe IVP 10 ml 0100,0900,1700 LOAN Administration Tamsulosin HCl 0.4 mg 05/17/24 11:00 05/19/24 08:12 Tamsulosin 0.4 Mg Capsule PO 0.4 mg DAILY LOAN Administration Objective Vital Signs/Intake & Output Reviewed Vital Signs: Yes Vital Signs: Vital Signs x48h Temp Pulse Resp BP Pulse Ox 05/19/24 05:37 36.5 C 79 18 121/67 93 Intake & Output: Intake & Output 05/17/24 05/18/24 05/19/24 05/20/24 05:59 05:59 05:59 05:59 Intake Total 557 / 557 1347 / 1347 1460 / 1460 Output Total 1775 / 1775 1225 / 1225 900 / 900 Balance -1218 / -1218 122 / 122 560 / 560 Weight (kg) 85.5 kg Objective General Appearance: positive No acute distress Eyes Bilateral: positive Normal inspection and Conjunctivae nml ENT: positive ENT inspection nml Neck: positive Nml inspection Respiratory: positive Chest non-tender Cardiovascular: positive Regular rate & rhythm Abdomen: positive Non-tender and No organomegaly Rectal: positive Non-tender Back: positive Nml inspection Skin: positive Color nml and Warm Extremities: positive Nml appearance, No pedal edema and Other (weakness in his right extremity due to CVA. ) Neurologic/Psychiatric: positive Oriented x3, Mood/affect nml (has been emotionally labile (?pseudobulbar). improved today), Weakness (right upper and lower extremity weakness. hand and wrist are especially weak on the right. elbow and shoulder have strength. ) and Facial droop (nasolabial fold is flattened on the right. ); negative CN's nml (2-12) Lab Results 05/19/24 05:25 05/19/24 05:25 Other Labs: Lab Results x24hrs 05/19/24 05/18/24 Range/Units 05:25 05:20 WBC 4.6 L (4.8-10.8) x10^3/uL RBC 4.26 L (4.70-6.10) 10^6/uL Hgb 12.9 L (14.0-18.0) g/dL Hct 37.1 L (42.0-52.0) % MCV 87.1 (80.0-94.0) fL MCH 30.3 (27.0-31.0) pg MCHC 34.8 (32.0-36.0) g/dL RDW 14.6 (12.0-15.0) % Plt Count 142 (130-450) 10^3/uL MPV 11.2 (7.4-11.4) fL Neut # (Auto) 2.7 (1.5-6.6) 10^3/uL Lymph # (Auto) 1.1 L (1.5-3.5) 10^3/uL [place] # (Auto) 0.4 (0.0-1.0) 10^3/uL Eos # (Auto) 0.3 (0.0-0.7) 10^3/uL Baso # (Auto) 0.0 (0.0-0.1) 10^3/uL Absolute Nucleated RBC 0.00 x10^3/uL Nucleated RBC % 0.0 /100WBC Sodium 139 (135-145) mmol/L Potassium 3.5 (3.5-4.5) mmol/L Chloride 105 (101-111) mmol/L Carbon Dioxide 29 (21-32) mmol/L Anion Gap 5.0 L (6-13) BUN 17 (6-20) mg/dL Creatinine 1.0 (0.6-1.3) mg/dL Estimated GFR (MDRD) 75 L (>89) Glucose 193 H (74-104) mg/dL Estimat Average Glucose 157 H (70-100) mg/dL Hemoglobin A1c % 7.1 H (4.27-6.07) % Calcium 8.9 (8.5-10.3) mg/dL Diagnostic Imaging Diagnostic Imaging Comments: Other Results/Comments Other Results/Comments: Echocardiogram 05/16/2024: Overall left ventricular systolic function lower limits of normal with ejection fraction of 50 to 55% Impaired relaxation consistent with grade 1 diastolic dysfunction The right ventricle is normal in size and function No concerning cardiac valvular disease. ABX Reporting Has patient been on IV antibiotics over the past 48 hours?: No Assessment/Plan Problem List (1) Acute stroke due to ischemia: Impression: 68 y/o white male hospital day #4 left side pontine infarct. His speech is still slurred. hemiplegia of the right side; it's worse on the right arm then leg. The edema that was on his left ankle is no longer there. During this interview, he's alerted and oriented. He needs to focus to be able to swallow, we are using moderately thickened liquids, but allowing him thin liquids at his request with care He is on a pureed diet for this reason. Will monitor and continue to advance if and when possible. His social situation is difficult. Unfortunately he did not sign up for Medicare and this cannot be completed until July of this year. He therefore does not qualify for supplemental Medicaid. This severely limits his options for inpatient rehab. Options are very limited for rehab. Options are actually nonexistent. We have determined that the best way to meet this patient's needs is to move him to swing bed status. With this he should be able to get therapy and nursing care to meet his needs. His rehab needs are quite extensive. He has poor truncal control at this time. We will be engaging speech therapy although availability at this facility is very limited. He has been started on a statin therapy due to his CVA. We will check a lipid panel as it has been quite sometime since this has been completed. (2) Hypertension: Impression: I have allowed permissive hypertension for 2 days. Now need to control his blood pressure. He has been on lisinopril 20 mg daily for 1 day. His blood pressure is a little bit labile at this point. I will continue to follow. 05/18/24 12:23 05/18/24 15:56 05/18/24 20:31 Pulse Rate [Brachial] 69 67 Pulse Rate [Monitoring electrodes] 73 Blood Pressure [Left Brachial artery] 164/83 H 152/78 H 142/80 H 05/18/24 23:35 05/19/24 05:37 05/19/24 08:55 Pulse Rate [Brachial] 59 L Pulse Rate [Monitoring electrodes] 66 79 Blood Pressure [Left Brachial artery] 170/87 H 121/67 175/94 H 05/19/24 11:30 Pulse Rate [Brachial] 82 Pulse Rate [Monitoring electrodes] Blood Pressure [Left Brachial artery] 149/75 H Qualifiers: Hypertension type: unspecified Qualified Code(s): I10 - Essential (primary) hypertension (3) Dysphagia: Impression: He has had significantly slurred speech since his stroke. I placed him on a pured diet yesterday due to difficulty with chewing and swallowing. He has had difficulty swallowing thin liquids without great concentration. We have been thickening his liquids. In our advance care planning discussions patient states that he would consent to feeding tube placement were to be indicated. Qualifiers: Dysphagia type: oropharyngeal phase Qualified Code(s): R13.12 - Dysphagia, oropharyngeal phase (4) Urinary retention: Impression: Urinary retention, acute, likely related to his CVA. I have started Flomax. Today we will remove the Purvis for voiding trial. (5) Hypokalemia: Impression: I have instituted daily potassium replacement with 20 mill equivalents of KCl p.o. his hypokalemia is improved. . Laboratory Tests 05/16/24 05/18/24 05/19/24 11:50 05:20 05:25 Potassium 3.4 L 3.3 L 3.5 (6) Diabetes: Impression: Hemoglobin A1c of 7.1%. Patient with elevated glucose. I will start him on metformin 500 mg twice daily. I will cover him with sliding scale insulin. I will then decide whether or not he needs to be on additional hyperglycemic therapy. Qualifiers: Diabetes mellitus type: type 2
[2024-05-19] MEDS: polyethylene glycoL 3350 17 GM PACKET PO SCH (10:35)
[2024-05-19 11:53] VITALS: BP 149/75; TEMP 97.9; O2SAT 95
--- NOTE | 2024-05-19 12:02 | Discharge Summary ---
"Discharge Summary Admit Date: 05/16/24 Discharge Date: 05/19/24 Discharging Provider: Rhonda Armstrong PA-C Primary Care Provider: none currently, previously Whitley Okeefe Code Status: Do Not Attempt Resuscitation DIAGNOSES Discharge Diagnoses with Status of Each Condition: Acute left pontine ischemic CVA, present on admission Hypertension, uncontrolled, present on admission Dysphagia Acute urinary retention, Hypokalemia Diabetes mellitus, uncontrolled. HPI History of Present Illness: 68 y/o white male brought to ER via ambulance service for loss of conscious. Pt's find him on the bedroom floor around 11 am and then they called EMS. Pt remember he woke up at 5:30 making coffee, around 9:30 as he was getting ready to go out he felt weak and this was the last thing he remembered. Pt states overall weakness on the left side, no headache, no radiating pain, no incontinence. Pt was diagnosed with hypertension, however, due to covid he stopped taking his B/P medication. Pt works as cook. He is . Pt doesn't smoke. CONSULTS | PROCEDURES Consultations: Telestroke neurologist by ED MD Procedures: Head CT: Atrophy and chronic ischemic change without intracranial hemorrhage or mass effect CTA of the head and neck: Unremarkable CTA of the brain without large vessel occlusion, aneurysm or vascular malformation. Mild atherosclerotic plaque in the proximal ICA without hemodynamically significant stenosis bilaterally. MRI brain: Left-sided pontine acute infarct Atrophy, chronic ischemic change, and old right basal ganglia lacunar infarct. Multifocal punctate old blood products noted reflecting sequelae of prior microhemorrhage. Venous duplex of the left lower extremity: No DVT of the visualized lower extremity. Venous duplex of the right lower extremity: No evidence of thrombus Right hand x-ray: Mild degenerative changes without radiographic abnormality. Chest x-ray: No acute cardiopulmonary process CTA of the chest: No pulmonary embolus. Cardiomegaly without pericardial effusion. Moderate infiltrates/atelectasis in bilateral lower lobes. No mediastinal or hilar lymphadenopathy HOSPITAL COURSE Hospital Course: (1) Acute stroke due to ischemia: Impression: 68 y/o white male hospital day #4 left side pontine infarct. His speech is still slurred. hemiplegia of the right side; it's worse on the right arm then leg. The edema that was on his left ankle is no longer there. he's alerted and oriented. He needs to focus to be able to swallow, we are using moderately thickened liquids, but allowing him thin liquids at his request with care He is on a pureed diet for this reason. Will monitor and continue to advance if and when possible. Speech therapy evaluation is pending. His social situation is difficult. Unfortunately he did not sign up for Medicare and this cannot be completed until July of this year. He therefore does not qualify for supplemental Medicaid. This severely limits his options for inpatient rehab. Options are very limited for rehab. Options are actually nonexistent. We have determined that the best way to meet this patient's needs is to move him to swing bed status. With this he should be able to get therapy and nursing care to meet his needs. His rehab needs are quite extensive. He has poor truncal control at this time. We will be engaging speech therapy although availability at this facility is very limited. He has been started on a statin therapy due to his CVA. We will check a lipid panel as it has been quite sometime since this has been completed. (2) Hypertension: Impression: I have allowed permissive hypertension for 2 days. Now need to control his blood pressure. He has been on lisinopril 20 mg daily for 1 day. His blood pressure is a little bit labile at this point. I will continue to follow. 05/18/2412:23 05/18/2415:56 05/18/2420:31 Pulse Rate [Brachial] 69 67 Pulse Rate [Monitoring electrodes] 73 Blood Pressure [Left Brachial artery] 164/83 H 152/78 H 142/80 H 05/18/2423:35 05/19/2405:37 05/19/2408:55 Pulse Rate [Brachial] 59 L Pulse Rate [Monitoring electrodes] 66 79 Blood Pressure [Left Brachial artery] 170/87 H 121/67 175/94 H 05/19/2411:30 Pulse Rate [Brachial] 82 Pulse Rate [Monitoring electrodes] Blood Pressure [Left Brachial artery] 149/75 H Qualifiers: Hypertension type: unspecified Qualified Code(s): I10 - Essential (primary) hypertension (3) Dysphagia: Impression: He has had significantly slurred speech since his stroke. I placed him on a pured diet yesterday due to difficulty with chewing and swallowing. He has had difficulty swallowing thin liquids without great concentration. We have been thickening his liquids. In our advance care planning discussions patient states that he would consent to feeding tube placement were to be indicated. Speech therapy evaluation is pending at this time. Qualifiers: Dysphagia type: oropharyngeal phase Qualified Code(s): R13.12 - Dysphagia, oropharyngeal phase (4) Urinary retention: Impression: Urinary retention, acute, likely related to his CVA. I have started Flomax. At the time of admission to swing bed his Purvis catheter has been removed. We are awaiting his ability to void. Is possible he will need replacement of Purvis catheter. (5) Hypokalemia: Impression: I have instituted daily potassium replacement with 20 mill equivalents of KCl p.o. his hypokalemia is improved. . Laboratory Tests 05/16/24 05/18/24 05/19/24 11:50 05:20 05:25 Potassium 3.4 L 3.3 L 3.5 (6) Diabetes: Impression: Hemoglobin A1c of 7.1%. Patient with elevated glucose. I will start him on metformin 500 mg twice daily. I will cover him with sliding scale insulin. I will then decide whether or not he needs to be on additional hyperglycemic therapy. ALLERGIES Allergies Allergy/AdvReac Type Severity Reaction Status Date / Time No Known Drug Allergies Allergy Verified 06/06/19 16:12 MEDICATIONS Ambulatory Orders Medication Instructions Recorded Confirmed docusate sodium 100 mg capsule 100 mg PO DAILY ##15 06/06/19 05/17/24 PHYSICAL EXAM AT DISCHARGE Physical Exam Other/Comments: General Appearance: positive No acute distress Eyes Bilateral: positive Normal inspection and Conjunctivae nml ENT: positive ENT inspection nml Neck: positive Nml inspection Respiratory: positive Chest non-tender Cardiovascular: positive Regular rate & rhythm Abdomen: positive Non-tender and No organomegaly Rectal: positive Non-tender Back: positive Nml inspection Skin: positive Color nml and Warm Extremities: positive Nml appearance, No pedal edema and Other (weakness in his right extremity due to CVA. ) Neurologic/Psychiatric: positive Oriented x3, Mood/affect nml (has been emotionally labile (?pseudobulbar). improved today), Weakness (right upper and lower extremity weakness. hand and wrist are especially weak on the right. elbow and shoulder have strength. ) and Facial droop (nasolabial fold is flattened on the right. ); negative CN's nml (2-12) LABS 05/19/24 05:25 05/19/24 05:25 FOLLOW UP Follow Up: He will transfer to swing bed status at [facility]. He will be seen by my partner tomorrow. TIME SPENT Time Spent in Discharge (Minutes): 50 Discharge Plan Discharge Patient Disposition: 61 Swing Bed DC/Xfer Condition: Stable Medically Cleared Date:: 05/19/24 Print Language: [place]ian"
[2024-05-19] MEDS: INSULIN LISPRO 300 UNIT/3 ML PEN SUBQ SCH (12:06)
[2024-05-19] MEDS: MULTIVITAMIN W/MINERALS TABLET PO SCH (12:08)
[2024-05-19] MEDS ORDERED: metFORMIN 500 MG TABLET PO SCH (17:00)
== END 2024-05-19 14:45 | disposition swing bed (61) | DRG 65 ==
LOC: ED 11:45 → MS2 14:00
PROVIDERS: ADMIT Physician Assistant Medical; ATTEND Physician Assistant Medical